=== PATIENT | male | born 1990 | race African-American/Black ===

== ENCOUNTER 2020-09-04 20:01 | Emergency (ER) | payer OTHER, SELFPAY ==
[2020-09-04 20:40] VITALS: BP 143/83; PULSE 80; RESP 16; TEMP 37.2; O2SAT 98; BMI 21.7
--- NOTE | 2020-09-04 21:01 | ED.SKABFB ---
HPI - Skin/Abscess/Foreign Bdy General Chief complaint: Skin/Abscess/Foreign Body Stated complaint: abcess Time Seen by Provider: 09/04/20 20:59 Source: patient Mode of arrival: ambulatory Limitations: no limitations History of Present Illness HPI narrative: This is a 30-year-old male who is an IVDA and presents with worsening development abscess to the left AC without associated fevers or chills. However, patient states that since he was evaluated on Saturday (and at that time received a prescription for Augmentin) after applying warm compresses to the area noted that the abscess increased in size. He denies any numbness/tingling distal to the infection but states that the forearm has gotten more red. Related Data Allergies Allergy/AdvReac Type Severity Reaction Status Date / Time SEAFOOD Allergy Mild HIVES Uncoded 06/09/20 18:41 Review of Systems Review of Systems: Pertinent positives and negatives as stated in HPI 10 point of systems is otherwise negative. PMFSH Past Medical History Source: nursing notes reviewed Medical History Hepatitis C Social History Social History Advance Directives: No Physical Exam Vital Signs: Vital Signs: Last Vital Signs Temp 99 F 09/04/20 20:40 Pulse 80 09/04/20 20:40 Resp 16 09/04/20 20:40 BP 143/83 H 09/04/20 20:40 Pulse Ox 98 09/04/20 20:40 Body Mass Index 21.7 VITAL SIGNS: Reviewed. GENERAL: Well developed, well nourished, in no acute distress. HEAD: Normocephalic/atraumatic, EYES: PERRLA, EOMI intact without pain, no nystagmus/pallor/icterus noted EARS: Ext canals without abnormality, TMs non-bulging and non-erythematous NOSE: Nares patent bilateral OROPHARYNX: no oral lesions noted, posterior pharynx clear and non-erythematous without noted tonsillar enlargement/erythema/exudates NECK: Supple, no adenopathy LUNGS: Normal breath sounds. No adventitious sounds or accessory muscle use. SpO2<98> CARDIOVASCULAR: Regular rate and rhythm without noted murmurs, no JVD or lower extremity edema. ABDOMEN: Soft, non-tender, non-distended with bowel sounds. No rigidity. No guarding. No palpable masses or hernias noted MUSCULOSKELETAL: No tenderness, deformities, or effusions noted on gross inspection. EXTREMITIES: No cyanosis, clubbing or edema; LUE: THERE IS A PROMINENT ABSCESS NOTED AT THE LEFT AC WITH NOTED FLUCTUANCE WELL SIGNIFICANT ERYTHEMA THAT EXTENDS DISTALLY INTO THE FOREARM, OTHERWISE NEUROVASCULARLY INTACT SKIN: Inspection of the skin reveals no rashes, ulcerations, jaundice, pallor, or petechiae. NEUROLOGIC: Alert and oriented x 4. Strength and sensation to light touch were grossly intact x 4. Course Course Course Narrative: This is a 30-year-old male with history and clinical presentation consistent with left upper extremity abscess secondary to IVDA and site was incision and drainage for copious amounts of purulence drainage all abscess pockets were accessed and wound was thoroughly irrigated with normal saline, patient tolerated the procedure well please see the procedure note for details. Patient was instructed to continue with antibiotic prescription as well as to return for re-evaluation in 2 days unless worsening condition. Procedures Abscess I/D Site: upper extremity Side (if applicable): left Sedation/analgesia: none Local Anesthetic: lidocaine 2% and with epi Amount of anesthesia used (mL): 7 Technique: incised with blade (11) and ultrasound guided Amount of fluid expressed (mL): 100 Sent for culture/gram staining?: No Irrigation: Yes (Sterile swab to break up abscess pockets,copious irrigation with NS) Packing used?: none Discharge Plan Discharge Clinical Impression: Abscess of skin or subcutaneous tissue Qualifiers: Site of cutaneous abscess: extremity Site of cutaneous abscess of extremity: upper extremity Laterality: left Qualified Code(s): L02.414 - Cutaneous abscess of left upper limb Cellulitis Qualifiers: Site of cellulitis: extremity Site of cellulitis of extremity: upper extremity Laterality: left Qualified Code(s): L03.114 - Cellulitis of left upper limb Patient Disposition: Home, Self-Care Instructions: Cellulitis (ED), Abscess (ED), Abscess Follow-up (ED), Abscess Incision and Drainage (DC) Additional Instructions: 1. Tylenol 1000 mg, orally, every 6 hours as needed for pain control. Do not exceed 4000 mg within 24 hours. 2. Ibuprofen 400 mg, orally with milk or food, every 6 hours as needed for pain control. 3. Continue with the antibiotics that you have been provided until they are complete. 4. Return to this emergency department in 2 days for re-evaluation of incision and drainage of your abscess. 5. Do not hesitate to return to this emergency room earlier should you begin developing worsening redness and swelling of the left upper extremity, fevers, chills. The patient and/or family acknowledge understanding of results (as applicable), diagnosis, treatment plan, need for follow up, and symptoms that should prompt a return to the emergency room. Referrals: Physician,None [Primary Care Provider] - 2 days
[2020-09-04] MEDS: Lidocaine HCl 2%/Epi 1:100,000 20 ML VIAL INFILTRATI (21:19)
== END 2020-09-04 22:03 | disposition home or self-care (01) ==
PROVIDERS: Emergency Provider Student in an Organized Health Care Education/Training Program
DX: L02.414 Cutaneous abscess of left upper limb (principal); L03.114 Cellulitis of left upper limb; F11.90 Opioid use, unspecified, uncomplicated
CPT/HCPCS: 10060; 99283; 99284

== ENCOUNTER 2021-12-08 10:43 | Emergency (ER) | payer OTHER, SELFPAY ==
--- NOTE | ~2021-12-08 | XR_ITS ---
EXAMINATION: XR FOOT, RIGHT CLINICAL INFORMATION: Injury. COMPARISON: None TECHNIQUE: AP, lateral, and oblique views of the right foot. FINDINGS: There is a nondisplaced fracture proximal second metatarsal with moderate dorsal soft tissue swelling. No additional fracture seen. The joint spaces are preserved. The ankle mortise and subtalar joint is normal. There are punctate calcifications seen throughout the soft tissues of right foot. XR/XR foot RT min 3V IMPRESSION: Nondisplaced fracture proximal second metatarsal with moderate dorsal soft tissue swelling. Nonspecific multiple punctate soft tissue calcifications
[2021-12-08 11:03] VITALS: BP 131/69; PULSE 73; RESP 18; TEMP 36.9; O2SAT 99; BMI 22.4
--- NOTE | 2021-12-08 12:15 | ED.LOWEXIN ---
HPI - Extremity Injury (Lower) General Chief Complaint: Extremity Injury, Lower Stated Complaint: R foot pain Time Seen by Provider: 12/08/21 11:25 Source: patient Mode of arrival: ambulatory Limitations: no limitations History of Present Illness HPI Narrative: Patient is a 31 year old male presenting to the emergency department today with right foot pain. Patient states that 5 days ago, he knelt down and when he stood back up, he felt a pop in his right foot and began to have pain. Patient states that the pain is localized to the top of his right foot, does not radiate, feels dull in nature, and is a 3/10 on the pain scale. Patient denies any dizziness, lightheadedness, abdominal pain, nausea, vomiting, fever, chills, blurry vision, double vision, loss of vision, chest pain, difficulty breathing, shortness of breath, back pain, night sweats, pain with urination, increased urinary frequency, increased urinary urgency, blood in his urine or stool, syncope or a near syncopal episode, recent trauma or falls, bowel incontinence, bladder incontinence, bowel retention, bladder retention, or any other complaints at this time. MD complaint: foot injury Onset (ago): day(s) (5) Severity: mild Severity scale (1-10): 3 Relieving factors: nothing Exacerbating factors: weight bearing and movement Associated symptoms: snap/pop sensation Other symptoms: none Related Data Allergies Allergy/AdvReac Type Severity Reaction Status Date / Time SEAFOOD Allergy Mild HIVES Uncoded 06/09/20 18:41 Review of Systems Constitutional: Constitutional: Reports no additional constitutional complaints, Denies chills, Denies fever(s) and Denies night sweats Eyes: Eyes: Reports no additional eye complaints, Denies blurry vision, Denies change in vision, Denies diplopia, Denies eye discharge, Denies loss of vision and Denies eye pain ENT: Denies dizziness Cardiovascular: Cardiovascular: Reports no additional cardiovascular complaints, Denies chest pain, Denies lightheadedness, Denies Loss of Consciousness and Denies dyspnea Respiratory: Respiratory: Reports no additional respiratory complaints and Denies dyspnea Gastrointestinal: Gastrointestinal: Reports no additional gastrointestinal complaints, Denies abdominal pain, Denies melena, Denies hematochezia, Denies change in bowel habits and Denies change in stool character Genitourinary: Genitourinary: Reports no additional male genitourinary complaints, Denies hematuria, Denies oliguria, Denies difficulty urinating, Denies dysuria, Denies urinary frequency, Denies urinary hesitancy, Denies urinary incontinence and Denies urinary urgency Musculoskeletal: Musculoskeletal: Reports no additional musculoskeletal complaints, Denies numbness and Denies tingling Comments: right foot pain Neurologic: Denies dizziness, Denies loss of vision, Denies numbness and Denies tingling Psychiatric: Psychiatric: Reports no additional psychiatric complaints Endocrine: Endocrine: Reports no additional endocrine complaints Hematologic/Lymphatic: Hematologic/Lymphatic: Reports no additional hematologic/lymphatic complaints Allergic/Immunologic: Allergic/Immunologic: Reports no additional allergic/immunologic complaints PMFSH Past Medical History Attestation statement: The following information was validated with the patient. Source: old records reviewed Medical History Hepatitis C Social History Social History Advance Directives: No Advance Directives Information Provided: No Physical Exam Vital Signs: Vital Signs: Last Vital Signs Temp 98.4 F 12/08/21 11:03 Pulse 73 12/08/21 11:03 Resp 18 12/08/21 11:03 BP 131/69 12/08/21 11:03 Pulse Ox 99 12/08/21 11:03 BMI result Body Mass Index 22.4 Const: General: cooperative, no acute distress, alert and awake Nutritional Appearance: well nourished Orientation/consciousness: patient oriented x3 Limitations: no limitations HENMT: Head: Yes normal to inspection and Yes atraumatic Ears: hearing grossly normal bilaterally and external ears normal General nose exam: Normal external nose present, no nasal discharge noted and no epistaxis Face and sinus: Yes normal facial exam, No abrasion and No laceration Mouth: Normal oral and palatal mucosa present, no drooling and no muffled voice Eyes: General: appearance normal, both eyes and all related structures Periorbital: periorbital findings normal Eyelids: Yes eyelids normal Conjunctivae: conjunctivae normal Pupils: Equal, round and reactive pupils present EOM: EOMs intact bilaterally Neck: Neck: Yes normal visual inspection, Yes full ROM and Yes no lymphadenopathy Chest: Chest palpation & inspection: normal inspection of the chest Resp: Effort & Inspection: normal respiratory effort and able to speak in complete sentences GI: Inspection: Yes normal to inspection Neuro: General: patient oriented x3 and moves all extremities Cranial nerves: Yes Equal, round and reactive pupils present Cognition (Neuro): normal cognition Motor exam (neuro): 5/5 motor strength present throughout Sensory Exam: Normal double simultaneous stimulation for sensation Coordination: [id number] test normal Extrem: Other: swelling to the dorsal aspect of the right foot as well as point tenderness to the center of the dorsal aspect of the right foot General: Yes full ROM and Yes capillary refill normal Psych: Appearance: grossly normal Mental Status: mental status grossly normal Affect: normal affect Attitude: cooperative Thought process: Normal thought process present Thought content: Normal thought content present Insight: Good insight present (Psych) MDM - Extremity Injury (Lower) MDM Narrative Medical decision making narrative: Patient is a 31 year old male presenting to the emergency department today with a right foot fracture. Patient's physical exam showed swelling to the dorsal aspect of the right foot with point tenderness to the middle of the dorsal aspect of the right foot. ROM, circulation, and strength were intact to the right lower extremity. Patient's right foot x-ray showed a non displaced fracture of the proximal second metatarsal. I explained my physical exam findings as well as all test results to the patient. I answered all questions asked by the patient. Patient's foot was placed in a post op shoe, without incident. Patient's PMS was intact prior to and after shoe placement. Patient was also given crutches and crutch training. I stressed the importance of the patient taking his medication as prescribed. I stressed the importance of the patient following up with his primary care provider and an orthopedic provider. I stressed the importance of the patient returning to the emergency department immediately if his symptoms were to worsen or if he were to develop any dizziness, shortness of breath, difficulty breathing, chest pain, blurry vision, loss of vision, nausea, vomiting, abdominal pain, fever, chills, back pain, or any other complaints. Patient verbalized agreement and understanding with this treatment plan and discharge. Differential Diagnosis Differential diagnosis: Likely fracture of toe (foot fracture) Medical Records Attestation: I reviewed the patient's medical records. Imaging Data Right foot x-ray: Attestation: I personally reviewed and interpreted this imaging study as follows: My impression: Acute fracture of the proximal second metatarsal Radiologist's impression: EXAMINATION: XR FOOT, RIGHT CLINICAL INFORMATION: Injury.? COMPARISON: None? TECHNIQUE: AP, lateral, and oblique views of the right foot. FINDINGS: There is a nondisplaced fracture proximal second metatarsal with moderate dorsal soft tissue swelling. No additional fracture seen. The joint spaces are preserved. The ankle mortise and subtalar joint is normal. There are punctate calcifications seen throughout the soft tissues of right foot. XR/XR foot RT min 3V IMPRESSION: Nondisplaced fracture proximal second metatarsal with moderate dorsal soft tissue swelling. ? Nonspecific multiple punctate soft tissue calcifications Dictated By: Gurdeep Weir MD Signed By: Electronically signed by Gurdeep Weir MD 12/08/21 1212 Discharge Plan Discharge Clinical Impression: Foot fracture Patient Disposition: Home, Self-Care Instructions: Crutch Instructions (ED), Foot Fracture in Adults (ED) Additional Instructions: Call to schedule a follow up appointment with an Orthopedic provider. Follow up with your primary care provider. Return to the emergency department immediately if your symptoms worsen or if you develop any dizziness, shortness of breath, difficulty breathing, chest pain, blurry vision, loss of vision, nausea, vomiting, abdominal pain, fever, chills, back pain, or any other complaints. Referrals: Satnam Caro MD [Physician] - 2 days Physician,None [Primary Care Provider] - 2 days (Follow up with your PCP. ) Print Language: Upper Sorbian
== END 2021-12-08 13:26 | disposition home or self-care (01) ==
PROVIDERS: Emergency Provider Emergency Medicine
DX: S92.324A Nondisplaced fracture of second metatarsal bone, right foot, initial encounter for closed fracture (principal); X50.1XXA Overexertion from prolonged static or awkward postures, initial encounter; Y93.9 Activity, unspecified; Y92.9 Unspecified place or not applicable; Y99.9 Unspecified external cause status
CPT/HCPCS: 73630; 99283; 99284

== ENCOUNTER 2022-01-03 04:12 | Emergency (ER) | payer OTHER, SELFPAY ==
[2022-01-03 04:32] VITALS: BP 132/86; PULSE 97; RESP 22; TEMP 37; O2SAT 100; BMI 21.7
[2022-01-03 06:18] VITALS: BP 105/37; PULSE 92; RESP 16; TEMP 36.7; O2SAT 93
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
--- NOTE | 2022-01-03 06:43 | PC.NURSE ---
at bedside for primary eval. Pt stating to MD that he has been without his Methadone for 2 days, pt states his dose is 100 mg/day. Pt requesting detox from heroin, fentanyl, crack and cocaine. Pt requesting PO intake, provided with food/drink per request.
[2022-01-03 06:59] VITALS: BP 125/69; PULSE 78; RESP 18; TEMP 36.4; O2SAT 98
--- NOTE | 2022-01-03 07:11 | PC.NURSE ---
pt reports going to [facility] on [facility] in [place] for his methadone, reports his dose is 100mg. clinic closed until 9am. will call then.
[2022-01-03 07:23] LABS: COVID-19 Test Negative (Negative); IDNOW Serial# 16C4AD1C
[2022-01-03 07:33] LABS: Amphetamine Screen Urine Not Detected (Not Detect); Barbiturates, Urine Not Detected (Not Detect); Benzodiazepines Screen Urine Not Detected (Not Detect); Cannabinoid Screen Urine Not Detected (Not Detect); Cocaine Screen Urine POSITIVE (Not Detect); Fentanyl, urine POSITIVE (Not Detect); Opiate Screen Urine POSITIVE (Not Detect); Phencyclidine Screen Urine Not Detected (Not Detect)
[2022-01-03 10:14] VITALS: BP 135/71; PULSE 69; RESP 16; O2SAT 99
[2022-01-03] MEDS: methADONE HCl 20 MG/2 ML ORAL.CONC 100 MG PO (13:59)
--- NOTE | 2022-01-03 14:55 | MHC.RECOVRN ---
Pt has a bed at [facility]. Cab has been ordered, will pick pt up by 1530 to transport.
== END 2022-01-03 15:49 | disposition home or self-care (01) ==
PROVIDERS: Emergency Provider Emergency Medicine
DX: F11.19 Opioid abuse with unspecified opioid-induced disorder (principal); R00.2 Palpitations; M79.601 Pain in right arm; F14.10 Cocaine abuse, uncomplicated; Z20.822 Contact with and (suspected) exposure to COVID-19; Z79.899 Other long term (current) drug therapy
CPT/HCPCS: 80307; 87635; 99284

== ENCOUNTER 2022-01-28 01:19 | Emergency (ER) | payer OTHER, SELFPAY ==
--- NOTE | ~2022-01-28 | CT_ITS ---
EXAMINATION: CT ABDOMEN AND PELVIS WITHOUT CONTRAST CLINICAL INFORMATION: Bilateral flank pain COMPARISON: None TECHNIQUE: Multidetector volumetric imaging was performed from the superior aspect of the liver through the pubic symphysis. Sagittal and coronal reformatted images were obtained on the technologist's workstation. This CT examination was performed using dose optimization techniques as appropriate, variously including the following: *Automated exposure control *Adjustment of mA and/or kV according to patient size (this includes techniques or standardized protocols for targeted exams where dose is matched to indication/reason for exam; i.e. extremities or head) *Use of iterative reconstruction technique DLP: 436 mGy-cm FINDINGS: LUNG BASES: Mild dependent bibasilar opacities favor atelectasis. LIVER, GALLBLADDER, AND BILIARY TREE: The liver is normal in size, shape, and attenuation. No focal hepatic lesion or biliary ductal dilatation is present. The gallbladder is unremarkable with no evidence of radiopaque gallstones, gallbladder wall thickening, or obvious pericholecystic inflammatory changes. PANCREAS: Unremarkable. SPLEEN: Unremarkable. ADRENAL GLANDS: Unremarkable. KIDNEYS AND URETERS: The kidneys are normal in size, shape, and attenuation. No hydronephrosis, hydroureter, or calculi seen. No perinephric stranding. BLADDER: Unremarkable. GASTROINTESTINAL TRACT: There is a rectangular shaped 0.6 cm density in the duodenum, which could reflect an ingested foreign body. No evidence of bowel obstruction or significant wall thickening. The appendix is unremarkable. No free fluid or free air is seen. ABDOMINAL WALL: No significant hernia is appreciated. LYMPH NODES: No lymphadenopathy is seen, though assessment is limited in the absence of intravenous contrast. VASCULAR: Unremarkable. PELVIC VISCERA: Unremarkable. OSSEOUS STRUCTURES: Unremarkable. CT/CT abdomen pelvis wo con IMPRESSION: 1. No hydronephrosis or obstructing calculus. 2. Rectangular shaped subcentimeter density in the duodenum, which could represent an ingested foreign body. Correlation with clinical history is recommended.
--- NOTE | ~2022-01-28 | XR_ITS ---
EXAMINATION: XR CHEST CLINICAL INFORMATION: Fever, chest pain, rule out pneumonia COMPARISON: None TECHNIQUE: 2 views of the chest were obtained. FINDINGS: The lungs are clear with no focal consolidation. No evidence of pneumothorax, pulmonary edema, or pleural effusions. The cardiomediastinal silhouette is unremarkable. No acute osseous findings. XR/XR chest 2V IMPRESSION: No acute cardiopulmonary findings.
[2022-01-28 01:26] VITALS: BP 149/77; PULSE 108; RESP 18; TEMP 36.6; O2SAT 97; BMI 22.1
--- NOTE | 2022-01-28 01:32 | PC.NURSE ---
provided patient with urine cup for sample, patient states he is unable to provide sample at this time. states he will try again soon
[2022-01-28 02:02] VITALS: BP 129/86; PULSE 87; RESP 16; TEMP 37.1; O2SAT 99
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
[2022-01-28 02:44] LABS: COVID-19 Test Negative (Negative); IDNOW Serial# 16C4AD1C; Influenza A Negative (Negative); Influenza B2 Negative (Negative)
[2022-01-28] MEDS: Ketorolac Tromethamine 15 MG/ML VIAL IVPUSH (03:00)
[2022-01-28] MEDS: 0.9 % Sodium Chloride 1,000 ML 999 ML IV ×2 (03:01→05:35)
[2022-01-28 03:03] LABS: MANUAL DIFF FLAG NO
[2022-01-28 03:07] LABS: Basophils Percent Auto 0.2 % (0-2); Eosinophils Percent Auto 0.3 % (0-4); Hematocrit 31.7 % (42.0-52.0); Hemoglobin 10.6 g/dl (14.0-18.0); Imm Gran Abs Auto 0.03 X10*3/uL (0.00-0.03); Imm Gran Pct Auto 0.3 % (0.0-0.4); Lymphocytes Absolute Auto 2.2 X10*3/uL (1.2-4.9); Lymphocytes Percent Auto 24.9 % (20-40); Mean Corpuscular HGB Conc 33.4 g/dl (31.0-36.0); Mean Corpuscular Hemoglobin 26.2 pg (27.0-33.0); Mean Corpuscular Volume 78.5 fL (80.0-98.0); Mean Platelet Volume 12.1 fL (9.4-12.4); Monocytes Absolute Auto 0.7 X10*3/uL (0.1-1.2); Monocytes Percent Auto 7.7 % (2-11); Neutrophils Absolute Auto 5.8 x10*3/uL (2.0-8.3); Neutrophils Percent Auto 66.6 % (45-73); Platelet Count 248 X10*3/uL (160-400); Red Blood Count 4.04 X10*6/uL (4.60-5.80); Red Cell Distribution Width 13.7 % (11.0-16.0); White Blood Count 8.7 X10*3/uL (4.8-10.8)
[2022-01-28 03:17] LABS: Lactic Acid 0.9 mmol/L (0.5-2.0)
[2022-01-28 03:26] LABS: Alanine Aminotransferase 49 U/L (0-40); Albumin Level 4.4 g/dL (3.5-5.0); Alkaline Phosphatase 73 U/L (39-117); Anion Gap 14 (12-20); Aspartate Amino Transferase 139 U/L (5-37); Blood Urea Nitrogen 20 mg/dL (9-16); C Reactive Protein 0.56 mg/dL (< or = 0.50); Calcium 9.4 mg/dL (8.4-10.2); Carbon Dioxide 23 mmol/L (22-29); Chloride 101 mmol/L (96-108); Estimated Glomerular Filt Rate > 60; Glucose Random 79 mg/dL (60-115); Lipase 41 U/L (8-78); Potassium 4.4 mmol/L (3.3-5.1); Sodium 134 mmol/L (135-145); Total Protein 8.5 g/dL (6.5-8.0)
[2022-01-28 03:50] LABS: Erythrocyte Sedimentation Rate 10 MM/HR (0-15)
[2022-01-28 04:50] VITALS: BP 115/61; PULSE 75; RESP 14; O2SAT 97
[2022-01-28 06:34] VITALS: BP 104/57; PULSE 77; RESP 12; O2SAT 99
[2022-01-28] MEDS: cefTRIAXone sodium 500 MG, Lidocaine HCl 1 % MPF 1 ML IM (08:09)
== END 2022-01-28 08:13 | disposition home or self-care (01) ==
PROVIDERS: Emergency Provider Emergency Medicine Emergency Medical Services
DX: N34.2 Other urethritis (principal); R50.9 Fever, unspecified; F14.90 Cocaine use, unspecified, uncomplicated; F11.90 Opioid use, unspecified, uncomplicated; R10.9 Unspecified abdominal pain; Z20.2 Contact with and (suspected) exposure to infections with a predominantly sexual mode of transmission; Z20.822 Contact with and (suspected) exposure to COVID-19; Z79.899 Other long term (current) drug therapy
CPT/HCPCS: 71046; 74176; 80053; 83605; 83690; 85025; 85652; 86140; 87040; 87502; 87635; 96361; 96372; 96374; 99283; 99284; J0696; J1885

== ENCOUNTER 2022-02-16 00:07 | Emergency (ER) | payer OTHER, SELFPAY ==
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
[2022-02-16 00:38] VITALS: BP 114/70; PULSE 80; RESP 16; TEMP 36.2; O2SAT 98; BMI 22.4
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
[2022-02-16 06:37] VITALS: BP 139/89; PULSE 57; RESP 16; TEMP 36.6; O2SAT 98
[2022-02-16] MEDS: Morphine Sulfate Immed Release 15 MG TABLET PO (06:53)
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
--- NOTE | 2022-02-16 07:23 | PC.NURSE ---
pt at rad for xrays
[2022-02-16] MEDS: HYDROmorphone HCl 2 MG/ML VIAL IM (08:28)
[2022-02-16] MEDS: cephALEXin 500 MG CAPSULE PO ×2 (08:29→10:57)
[2022-02-16 09:02] LABS: COVID-19 Test Negative (Negative); IDNOW Serial# 16C4AD1C
[2022-02-16 09:49] VITALS: BP 148/83; PULSE 69; RESP 16; O2SAT 98
--- NOTE | 2022-02-16 10:09 | PC.NURSE ---
splint has been applied to r arm and pt has spoken with assistant tennis coach and they are working on a detox bed. pt is asleep but easily arousably, in no distress. pt has good cms to r hand.
--- NOTE | 2022-02-16 10:24 | MHC.RECOVRN ---
Spoke with pt regarding substance use and desire for ATS. Pt reports using heroin, IV, 2 bundles daily, last use yesterday. Pt is interested in ATS. [facility] has bed availability. Pt completed intake, awaiting notification of acceptance.
--- NOTE | 2022-02-16 11:28 | MHC.RECOVRN ---
Pt accepted to [facility], [facility] [place]. personal coach facilitating.
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
== END 2022-02-18 08:50 | disposition other institution (70) ==
PROVIDERS: Emergency Provider Emergency Medicine
DX: S61.201A Unspecified open wound of left index finger without damage to nail, initial encounter (principal); S52.001A Unspecified fracture of upper end of right ulna, initial encounter for closed fracture; S62.621A Displaced fracture of middle phalanx of left index finger, initial encounter for closed fracture; Y00.XXXA Assault by blunt object, initial encounter; F19.10 Other psychoactive substance abuse, uncomplicated; Y93.9 Activity, unspecified; Y92.9 Unspecified place or not applicable; Y99.9 Unspecified external cause status
CPT/HCPCS: 29125; 29130; 73090; 73130; 87635; 96372; 99284; J1170

== ENCOUNTER 2022-03-14 23:55 | Emergency (ER) | payer OTHER, SELFPAY ==
--- NOTE | ~2022-03-14 | XR_ITS ---
EXAMINATION: XR forearm RT 2V, XR ribs RT min 3V w CXR1V CLINICAL INFORMATION: Reason for Exam s/p fall , old fx COMPARISON: Right forearm 02/16/2022. TECHNIQUE: AP and lateral radiographs of the right forearm; AP chest and 3 view series right ribs. FINDINGS: Right forearm: Splinting material is present and obscures visualization of underlying fine anatomic details. Partial visualization is made of a comminuted fracture of the proximal ulna in near anatomic alignment without evidence of callus formation and indistinct fracture margins. Mild volar angulation of the major fracture fragments is identified. Chest and right RIBS: No effusions or pneumothoraces. Heart normal pattern of pulmonary vasculature. No focal pulmonary consolidation. Images are obtained with a radial marker along the lateral aspect of the lower right rib segments. No displaced rib fractures identified. No suspicious rib lesions noted. Focal cortical deformity of the lateral segment of the right eighth rib is noted without cortical step-off to suggest acute fracture. This finding may represent the sequela of remote trauma or a normal anatomic variation. XR/XR ribs RT min 3V w CXR1V IMPRESSION: Right forearm: *No acute abnormalities identified. *Partial interval healing of the previously identified comminuted fracture of the right ulna compared with right forearm radiographs 02/16/2022. Chest and right RIBS: *No acute abnormalities. *Focal cortical irregularity of the lateral segment of the right eighth rib which may represent the sequela of remote trauma. No acute appearing displaced rib fractures. *No acute cardiopulmonary abnormalities. No pleural effusions or pneumothoraces.
--- NOTE | ~2022-03-14 | XR_ITS ---
EXAMINATION: XR forearm RT 2V, XR ribs RT min 3V w CXR1V CLINICAL INFORMATION: Reason for Exam s/p fall , old fx COMPARISON: Right forearm 02/16/2022. TECHNIQUE: AP and lateral radiographs of the right forearm; AP chest and 3 view series right ribs. FINDINGS: Right forearm: Splinting material is present and obscures visualization of underlying fine anatomic details. Partial visualization is made of a comminuted fracture of the proximal ulna in near anatomic alignment without evidence of callus formation and indistinct fracture margins. Mild volar angulation of the major fracture fragments is identified. Chest and right RIBS: No effusions or pneumothoraces. Heart normal pattern of pulmonary vasculature. No focal pulmonary consolidation. Images are obtained with a radial marker along the lateral aspect of the lower right rib segments. No displaced rib fractures identified. No suspicious rib lesions noted. Focal cortical deformity of the lateral segment of the right eighth rib is noted without cortical step-off to suggest acute fracture. This finding may represent the sequela of remote trauma or a normal anatomic variation. XR/XR forearm RT 2V IMPRESSION: Right forearm: *No acute abnormalities identified. *Partial interval healing of the previously identified comminuted fracture of the right ulna compared with right forearm radiographs 02/16/2022. Chest and right RIBS: *No acute abnormalities. *Focal cortical irregularity of the lateral segment of the right eighth rib which may represent the sequela of remote trauma. No acute appearing displaced rib fractures. *No acute cardiopulmonary abnormalities. No pleural effusions or pneumothoraces.
[2022-03-15] VITALS: BP 130/80; PULSE 114; O2SAT 99
[2022-03-15 00:02] VITALS: BP 118/61; PULSE 96; RESP 16; TEMP 37.4; O2SAT 97; BMI 20.9
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
[2022-03-15] MEDS: Ibuprofen 600 MG TABLET PO (01:13)
== END 2022-03-15 01:26 | disposition home or self-care (01) ==
PROVIDERS: Emergency Provider Internal Medicine; PCP Internal Medicine
DX: S20.211A Contusion of right front wall of thorax, initial encounter (principal); W01.0XXA Fall on same level from slipping, tripping and stumbling without subsequent striking against object, initial encounter; S52.001D Unspecified fracture of upper end of right ulna, subsequent encounter for closed fracture with routine healing; X58.XXXD Exposure to other specified factors, subsequent encounter; Y93.9 Activity, unspecified; Y92.9 Unspecified place or not applicable; Y99.9 Unspecified external cause status
CPT/HCPCS: 71101; 73090; 99283

== ENCOUNTER 2022-03-27 23:54 | Emergency (ER) | payer OTHER, SELFPAY ==
[2022-03-28 01:25] VITALS: BP 125/77; PULSE 76; RESP 18; TEMP 37.1; O2SAT 99; BMI 22.4
== END 2022-03-28 03:23 | disposition left against medical advice (07) ==
PROVIDERS: Emergency Provider Emergency Medicine
DX: S69.91XA Unspecified injury of right wrist, hand and finger(s), initial encounter (principal); W21.11XA Struck by baseball bat, initial encounter; Y93.9 Activity, unspecified; Y92.9 Unspecified place or not applicable; Y99.9 Unspecified external cause status
CPT/HCPCS: 99281

== ENCOUNTER 2022-04-25 22:01 | Emergency (ER) | payer OTHER, SELFPAY ==
[2022-04-25 22:22] VITALS: BP 130/80; PULSE 98; RESP 18; TEMP 36.9; O2SAT 94; BMI 22.4
[2022-04-26 01:15] VITALS: BP 130/78; PULSE 80; RESP 16; TEMP 37.1; O2SAT 98
--- NOTE | 2022-04-26 01:32 | PC.NURSE ---
PATIENT GOT CHANGE INTO HOSPITAL ATTIRE ,BELONGINGS WAS SEARCH BY SECURITY ,AND KEPT AT BEDSIDE ,PATIENT ASK FOR FOOD ,HAS 2 SANDWICH AND 2 CAN OF [employer]UM[employer] ALEA .
--- NOTE | 2022-04-26 02:49 | MHC.CARE ---
Pt provided with list of detox. Pt encouraged call numbers and provided with CARE Team phone # to speak with a Employee Counselor tomorrow. Pt provided with education around his methadone. No SI/HI
--- NOTE | 2022-04-26 02:50 | PC.NURSE ---
pt changed into hospital attire, security checked pt belongings and wanded for weapons/contraband. Pt cooperative, pt given food and blanket with a warm blanket. Awaiting disposition
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
== END 2022-04-26 03:37 | disposition home or self-care (01) ==
PROVIDERS: Emergency Provider Emergency Medicine Emergency Medical Services
DX: F11.20 Opioid dependence, uncomplicated (principal); F17.200 Nicotine dependence, unspecified, uncomplicated
CPT/HCPCS: 99284

== ENCOUNTER 2023-04-12 15:44 | Emergency (ER) | payer OTHER, SELFPAY ==
[2023-04-12] VITALS (15 sets, daily range): BP systolic 122–149; BP diastolic 34–107; PULSE 43–93; RESP 13–25; TEMP 36.6–37.1; O2SAT 96–100; BMI 26.5
[2023-04-12] MEDS: OLANZapine 10 MG VIAL IM (15:45)
--- NOTE | 2023-04-12 16:09 | ED.OVERDOSE ---
HPI - Overdose General Chief Complaint: ETOH/Substance Use Stated Complaint: OD? Time Seen by Provider: 04/12/23 16:06 Source: EMS Mode of arrival: EMS Limitations: altered mental status History of Present Illness HPI Narrative: Patient comes to the emergency room via EMS. Patient was found on the street, given 4 mg Narcan. According to bystanders they told EMS that the patient has history crack and heroin use. When patient arrived to the emergency room, patient altered, very combative, incoherent. Related Data Allergies Allergy/AdvReac Type Severity Reaction Status Date / Time Unable to Assess Allergy Unverified 04/12/23 16:07 Review of Systems Review of Systems: Yes Unobtainable due to mental condition [facility] Past Medical History Medical History (Updated 04/13/23 @ 00:05 by Background Daemon) Polysubstance abuse Physical Exam Vital Signs: Vital Signs: Last Vital Signs Temp 97.9 F 04/13/23 01:31 Pulse 65 04/13/23 01:31 Resp 10 L 04/13/23 01:31 BP 134/75 04/13/23 01:31 Pulse Ox 100 04/13/23 01:31 O2 Del Method Room Air 04/13/23 01:31 BMI result Body Mass Index 26.5 Const: Other: Appearance: Alert. Combative, incoherent Eyes: Pupils equal, round and reactive to light. ENT: Pharynx normal. Neck: Normal inspection. Neck supple. No lymph nodes noted. No crepitus CVS: Normal heart rate and rhythm. Pulses normal. Normal S1 and S2 Respiratory: No respiratory distress. Breath sounds normal. No Wheezing. No rales Abdomen: Soft and nontender. No rigidity. No distention. Skin: Skin warm and dry. Normal skin color. Normal skin turgor. Extremities: No lower extremity edema. No Lacerations. No Rash Neuro: Moving all extremities, unable to participating cranial nerve assessment Psych: Very combative Course Course Course Narrative: -initially, patient was given IM Zyprexa. Patient still very combative, given additionally IM Benadryl 50 mg, 2 mg Ativan, 5 mg Haldol -after an hour, patient remains in restraints, patient is too agitated, thrashing, patient getting IM Geodon at this time. Medications Administered Discontinued Medications Generic Name Dose Route Start Last Admin Trade Name Freq PRN Reason Stop Dose Admin Diphenhydramine HCl 50 mg 04/12/23 16:08 04/12/23 16:12 Diphenhydramine Hcl 50 Mg/Ml Vial IM 04/12/23 16:09 50 mg ONCE ONE Administration Haloperidol Lactate 5 mg 04/12/23 16:08 04/12/23 16:12 Haloperidol Lactate 5 Mg/Ml Vial IM 04/12/23 16:09 5 mg ONCE ONE Administration Ketamine HCl 140 mg 04/12/23 20:18 04/12/23 20:30 Ketamine Hcl 500 Mg/5 Ml Vial IM 04/12/23 20:19 140 mg ONCE ONE Administration Lorazepam 2 mg 04/12/23 16:08 04/12/23 16:12 Lorazepam 2 Mg/Ml Vial IM 04/12/23 16:09 2 mg ONCE ONE Administration Olanzapine 10 mg 04/12/23 16:42 04/12/23 15:45 Olanzapine 10 Mg Vial IM 04/12/23 16:43 10 mg ONCE ONE Administration Ziprasidone 20 mg 04/12/23 17:24 04/12/23 17:35 Ziprasidone Mesylate 20 Mg Vial IM 04/12/23 17:25 20 mg ONCE ONE Administration Medical Decision Making Medical Decision Making MDM Narrative: -it has been approximately 4 hours since patient got Haldol, lorazepam, Zyprexa, Benadryl, Geodon. Patient is still restless, trying to get off restraints. -patient will be getting ketamine IM. -it was noted that patient has a small abscess in the lateral posterior aspect of the neck on the right side. The abscess was opened with a tip of an 18 gauge needle and expressed. A fair amount of pus was drained. When patient is more awake, he will need antibiotics -01:45: Patient remains sleeping, no longer having restraints for several hours now. We still do not know the patient's name sign out given to Dr. Martin Lab Data 04/12/23 20:59 Labs: Lab Results 04/12/23 04/12/23 04/12/23 Range/Units 16:06 20:59 20:59 WBC 8.4 (4.8-10.8) X10*3/uL RBC 4.65 (4.60-5.80) X10*6/uL Hgb 12.3 L (14.0-18.0) g/dl Hct 36.1 L (42.0-52.0) % MCV 77.6 L (80.0-98.0) fL MCH 26.5 L (27.0-33.0) pg MCHC 34.1 (31.0-36.0) g/dl RDW 13.2 (11.0-16.0) % Plt Count 240 (160-400) X10*3/uL MPV 11.4 (9.4-12.4) fL Immature Gran % (Auto) 0.2 (0.0-0.4) % Neut % (Auto) 85.7 H (45-73) % Lymph % (Auto) 10.9 L (20-40) % [place] % (Auto) 2.9 (2-11) % Eos % (Auto) 0.1 (0-4) % Baso % (Auto) 0.2 (0-2) % Lymph # (Auto) 0.9 L (1.2-4.9) X10*3/uL [place] # (Auto) 0.2 (0.1-1.2) X10*3/uL Eos # (Auto) 0.0 (0.0-0.4) X10*3/uL Baso # (Auto) 0.0 (0.0-0.2) X10*3/uL Abs Immat Gran (auto) 0.02 (0.00-0.03) X10*3/uL Absolute Neuts (auto) 7.2 (2.0-8.3) x10*3/uL Absolute Nucleated RBC 0.000 (0.0-0.012) X10*3/uL Nucleated RBC % (auto) 0.0 (0.0-0.2) /100WBC Sodium 138 (135-145) mmol/L Potassium 3.5 (3.3-5.1) mmol/L Chloride 107 (96-108) mmol/L Carbon Dioxide 21 L (22-29) mmol/L Anion Gap 14 (12-20) BUN 5 L (9-16) mg/dL Creatinine 0.75 (0.5-1.4) mg/dL Estim Creat Clear Calc 112.9 Estimated GFR > 60 POC Glucose 91 (60-115) mg/dL Random Glucose 106 (60-115) mg/dL Calcium 9.2 (8.4-10.2) mg/dL Magnesium 2.0 (1.6-2.6) mg/dL Total Bilirubin 0.8 (0.0-1.0) mg/dL Direct Bilirubin 0.4 (0.0-0.5) mg/dL AST 125 H (5-37) U/L ALT 142 H (0-40) U/L Alkaline Phosphatase 73 (39-117) U/L Total Creatine Kinase 1524 H (38-174) U/L Total Protein 7.7 (6.5-8.0) g/dL Albumin 3.6 (3.5-5.0) g/dL Ethyl Alcohol < 10 mg/dL Critical Care Time Critical Care Time Critical Care Time: Yes Total Critical Care Time: 120 Attestation: I have personally provided critical care time. Time includes review of lab data, radiology results, discussion with consultants, and monitoring for potential decompensation. Intervention performed as documented. Discharge Plan Discharge Clinical Impression: Overdose, Abscess Patient Disposition: Still a Patient
[2023-04-12 16:12] LABS: Glucose, Whole Blood 91 mg/dL (60-115)
[2023-04-12] MEDS: Haloperidol Lactate 5 MG/ML VIAL IM (16:12)
[2023-04-12] MEDS: diphenhydrAMINE HCL 50 MG/ML VIAL IM (16:12)
[2023-04-12] MEDS: LORazepam 2 MG/ML VIAL IM (16:12)
--- NOTE | 2023-04-12 16:20 | PC.NURSE ---
pt was moved to bed 6 put on monitor and suction was assembled and ready. pt placed in 4 pt restraints. poc was 91. pt noted to be in sinus tach on monitior. pt is tolerating his own oral secretions and resps are spontaneous and nonlabored, pt is protecting his airway. pt has multiple trac barlow on arms and neck, no med patches found. pt contiues thrashing in bed and grunting incoherently. ems reported pt was found down on sidewalk, bystanders administered 2mg nasalnarcan with no desired effect. no other info was available on scene, no sign of trauma is evident now nor was any reported from scene. staff will continue to monitor. Zyprexa 10mg was given at triage time per verbal order of md shirley.
[2023-04-12] MEDS: Ziprasidone Mesylate 20 MG VIAL IM (17:35)
--- NOTE | 2023-04-12 17:54 | PC.NURSE ---
Unable to assess CIWA due to inability to answer questions. pt medicated per md order. failed trial to release left leg from restraint. pt remains in 4 point restraints, +CMS x4, 1:1 staff at pts beside. Will cont. to observe. vss.
--- NOTE | 2023-04-12 19:33 | PC.NURSE ---
I assumed care of the pt at 1900. Pt is in 4-point physical restraints. Pt is still writhing uncontrolled and pulling on restraints. Pt also has a 1-1 sitter at the bedside. Pt is on continuous cardiac monitoring and O2 monitoring. Will continue to monitor for ability to be released from restraints. Pt cannot be released at this time due to risk of harm to self or others
[2023-04-12] MEDS: Ketamine HCl 500 MG/5 ML VIAL 140 MG IM (20:30)
--- NOTE | 2023-04-12 20:32 | PC.NURSE ---
As of 20:00, pt is still restless and pulling on restraints. Pt is not verbally responding or opening eyes on command. Dr Becerril at bedside renewed restraint order at 20:00. Right leg has been released as trial. Pt still writhing but is not endangering himself. Dr. Becerril also ordered IM ketamine, given at 20:30, as per NOV. Will continue to monitor for trial for release.
[2023-04-12 21:06] LABS: MANUAL DIFF FLAG NO
[2023-04-12 21:08] LABS: Basophils Percent Auto 0.2 % (0-2); Eosinophils Percent Auto 0.1 % (0-4); Hematocrit 36.1 % (42.0-52.0); Hemoglobin 12.3 g/dl (14.0-18.0); Imm Gran Abs Auto 0.02 X10*3/uL (0.00-0.03); Imm Gran Pct Auto 0.2 % (0.0-0.4); Lymphocytes Absolute Auto 0.9 X10*3/uL (1.2-4.9); Lymphocytes Percent Auto 10.9 % (20-40); Mean Corpuscular HGB Conc 34.1 g/dl (31.0-36.0); Mean Corpuscular Hemoglobin 26.5 pg (27.0-33.0); Mean Corpuscular Volume 77.6 fL (80.0-98.0); Mean Platelet Volume 11.4 fL (9.4-12.4); Monocytes Absolute Auto 0.2 X10*3/uL (0.1-1.2); Monocytes Percent Auto 2.9 % (2-11); Neutrophils Absolute Auto 7.2 x10*3/uL (2.0-8.3); Neutrophils Percent Auto 85.7 % (45-73); Platelet Count 240 X10*3/uL (160-400); Red Blood Count 4.65 X10*6/uL (4.60-5.80); Red Cell Distribution Width 13.2 % (11.0-16.0); White Blood Count 8.4 X10*3/uL (4.8-10.8)
--- NOTE | 2023-04-12 21:17 | PC.NURSE ---
Dr Becerril at bedside, 4 restraints removed. Pt was responsive to painful stimuli, shot up and yelled, mumbled, then fell back to sleep.
[2023-04-12 21:47] LABS: Alanine Aminotransferase 142 U/L (0-40); Albumin Level 3.6 g/dL (3.5-5.0); Alkaline Phosphatase 73 U/L (39-117); Anion Gap 14 (12-20); Aspartate Amino Transferase 125 U/L (5-37); Bilirubin Direct 0.4 mg/dL (0.0-0.5); Bilirubin Total 0.8 mg/dL (0.0-1.0); Blood Urea Nitrogen 5 mg/dL (9-16); Calcium 9.2 mg/dL (8.4-10.2); Carbon Dioxide 21 mmol/L (22-29); Chloride 107 mmol/L (96-108); Creatinine Clr Calc Pharmacy 112.9; Estimated Glomerular Filt Rate > 60; Ethanol < 10 mg/dL; Glucose Random 106 mg/dL (60-115); Potassium 3.5 mmol/L (3.3-5.1); Sodium 138 mmol/L (135-145); Total Protein 7.7 g/dL (6.5-8.0)
--- NOTE | 2023-04-12 23:14 | PC.NURSE ---
Pt remains asleep at this time. Sitter is at the bedside, pt is connected to cardiac monitoring.
[2023-04-13] VITALS (9 sets, daily range): BP systolic 115–134; BP diastolic 64–88; PULSE 51–84; RESP 10–20; TEMP 36.6–37.4; O2SAT 96–100
--- NOTE | 2023-04-13 00:48 | PC.NURSE ---
Pt remains asleep at this time. Sitter at bedside and on continuous tele
--- NOTE | 2023-04-13 03:17 | PC.NURSE ---
Pt was a hard stick, multiple nurses attempted an IV without success. Dr Lyman placed an EJ in the left side of the neck. Fluids running at this time. Pt is still asleep, arousable to painful stimuli but will not respond when spoken to and falls back to sleep quickly.
[2023-04-13] MEDS: 0.9 % Sodium Chloride 1,000 ML 999 ML IVCONT (03:19)
[2023-04-13] MEDS: 0.9 % Sodium Chloride 1,000 ML 999 ML IV (05:44)
--- NOTE | 2023-04-13 06:07 | PC.NURSE ---
Pt remains asleep, alert to painful stimuli. VSS, fluid running into the IV in the left side of his neck.
--- NOTE | 2023-04-13 06:31 | PC.NURSE ---
Pt woke up, began yelling for a nurse. Pt stated he had to pee, I assisted with urinal. Urines collected and sent to lab. Pt was able to give us his name and date of before falling back to sleep.
[2023-04-13 06:36] LABS: Appearance Urine Clear; Color Urine Yellow; Glucose Urine UA Negative (Negative); Leukocyte Esterase Urine Negative (Negative); Nitrite Urine Negative (Negative); PH 6.5 (5.0-9.0); Urine Blood Negative (Negative); Urine Ketones 15 mg/dL (Negative); Urine Protein Negative (Neg-Trace)
[2023-04-13 06:46] LABS: Amphetamine Screen Urine Not Detected (Not Detect); Barbiturates, Urine Not Detected (Not Detect); Benzodiazepines Screen Urine Not Detected (Not Detect); Cannabinoid Screen Urine Not Detected (Not Detect); Cocaine Screen Urine POSITIVE (Not Detect); Fentanyl, urine POSITIVE (Not Detect); Opiate Screen Urine POSITIVE (Not Detect); Phencyclidine Screen Urine Not Detected (Not Detect)
--- NOTE | 2023-04-13 08:47 | PC.NURSE ---
assumed care of this pt at 0700. pt sleeping quietly on stretcher, unable to answer assessment questions at this time. 1:1 sitter at bedside. rr even/unlabored. vss. wctm
--- NOTE | 2023-04-13 14:14 | PC.NURSE ---
pt remains asleep on stretcher. 1:1 sitter at bedside. rr even/unlabored. vss. wctm
--- NOTE | 2023-04-13 17:17 | PC.NURSE ---
pt asleep on stretcher. unable to obtain assessments. 1:1 sitter at bedside for pt safety. rr even/unlabored. wctm
--- NOTE | 2023-04-13 20:41 | PC.NURSE ---
pt awake, gait steady, incontinent of urine and stool, pt changed to scrubs
[2023-04-14 04:19] VITALS: BP 121/67; PULSE 68; RESP 16; TEMP 37.2; O2SAT 99
[2023-04-14 07:10] VITALS: BP 130/67; PULSE 71; RESP 16; TEMP 37.2; O2SAT 99
[2023-04-14 08:00] VITALS: RESP 16
--- NOTE | 2023-04-14 08:27 | PC.NURSE ---
assumed care of pt at 0700. pt sleeping but able to wake up for assessment questions. denies SI/HI. will discuss pt plan of care with provider. maximiliano. edtm
--- NOTE | 2023-04-14 09:21 | PC.NURSE ---
1:1 sitter discontinued. pt sleeping on and off, calm. devan pants visibly soiled. tech assisting pt clean up.
[2023-04-14 12:32] VITALS: BP 144/71; PULSE 61; RESP 16; TEMP 37.2; O2SAT 99
--- NOTE | 2023-04-14 12:36 | PC.NURSE ---
pt awake and talking, unaware of how he got here, why, or how long ago. pt sts he does not remember the events leading up to his stay here. pt was updated by this RN and the pt became apologetic and tearful, asking to apologize to the staff involved on the receiving end of his behavior. pt sts he has been using heroin and cocaine for a long time and would like to get help. pt requests to talk with laborer cutting tool
[2023-04-14] MEDS: methADONE HCl 20 MG/2 ML ORAL.CONC 30 MG PO (14:02)
[2023-04-14 14:30] VITALS: BP 137/76; PULSE 68; RESP 24
--- NOTE | 2023-04-14 14:41 | HO.SUDE ---
Met with pt in ED6 after pt presented to [facility] with ?overdose. Pt does not recall events leading up to arrival. Pt reports using heroin, 5 bundles daily, IV, as well as cocaine, not much. Pt difficult to engage in conversation, reports withdrawal symptoms, most notably upset stomach/loose stool. Pt requesting methadone. Per pt, had been on methadone from [facility] in [place], 130 mg, last dose 40 days ago. Pt would like to restart and continue at [facility]. Spoke with provider, plan to administer 30 mg methadone and re-evaluate.
--- NOTE | 2023-04-14 14:44 | MHC.RECOVRN ---
Pt requesting discharge and to follow up with OTP tomorrow. Referral sent to [facility].
== END 2023-04-14 14:50 | disposition home or self-care (01) ==
PROVIDERS: Emergency Provider Emergency Medicine
DX: T65.91XA Toxic effect of unspecified substance, accidental (unintentional), initial encounter (principal); L02.11 Cutaneous abscess of neck; Y92.9 Unspecified place or not applicable; F19.90 Other psychoactive substance use, unspecified, uncomplicated
CPT/HCPCS: 10060; 36415; 80048; 80076; 80307; 81003; 82550; 82947; 83735; 85025; 96360; 96361; 96372; 99285; J1200; J2060; J3486